=== PATIENT | female | born 1980 ===

== ENCOUNTER 2024-03-29 09:50 | Emergency (ER) | payer SELFPAY ==
[~2024-03-29] VITALS: Ht 165.1 cm; Wt 75.7 kg
[2024-03-29 09:55] VITALS: O2SAT 97
[2024-03-29 09:56] VITALS: BP 115/63; PULSE 88; RESP 18; TEMP 98.9
== END 2024-03-29 10:05 | disposition left against medical advice (07) ==
LOC: EDH 09:50
DX: M54.50 Low back pain, unspecified (principal); Z53.21 Procedure and treatment not carried out due to patient leaving prior to being seen by health care provider; X50.0XXA Overexertion from strenuous movement or load, initial encounter; Y93.89 Activity, other specified; Y92.89 Other specified places as the place of occurrence of the external cause; Y99.8 Other external cause status